=== PATIENT | male | born 1960 | race Caucasian/White ===

== ENCOUNTER → 2021-07-28 | Day surgery (SDC) | payer OTHER ==
[~2021-07-28] VITALS: Ht 185.4 cm; Wt 108.9 kg
[~2021-07-28] MED LIST: COMPAZINE10 MG PO; DEXAMETHASONE 4M4 MG PO; DIGOX250 MCG PO; ELIQUIS5 MG PO; LIPITOR 10MG TA10 MG PO; METOPROLOL SUCC25 MG PO; NORCO 5-325 TA1 EACH PO; ONDANSETRON ODT8 MG PO; PERCOCET 5-3251 EACH PO; VITAMIN D3 PO; XARELTO20 MG PO
== END | disposition home or self-care (01) ==
LOC: FAS 09:16
DX: I87.2 Venous insufficiency (chronic) (peripheral) (principal); I48.91 Unspecified atrial fibrillation; E78.5 Hyperlipidemia, unspecified; I10 Essential (primary) hypertension; C61 Malignant neoplasm of prostate; E66.9 Obesity, unspecified; I77.810 Thoracic aortic ectasia; M19.90 Unspecified osteoarthritis, unspecified site; Z79.01 Long term (current) use of anticoagulants; Z68.31 Body mass index [BMI] 31.0-31.9, adult
CPT/HCPCS: 36415; 71045; 76000; 80162; C1788; J0690; J1644; J2250; J2704; J3010; J7120